=== PATIENT | female | born 1945 | race Two or more races ===

== ENCOUNTER 2018-05-10 10:17 | Inpatient (IN) | payer MEDICARE, MEDICAID ==
[~2018-05-10] VITALS: Ht 157.5 cm; Wt 75.8 kg
[2018-05-10] MEDS ORDERED: IV NS 0.9% 1,000 ML BAG IV ONE (10:30)
--- NOTE | 2018-05-10 10:37 | NUR ---
patient presented to the ER dilan, c/o rapid heart rate x 2 weeks. On room air, denies any pain at this time. connected to the monitor, and pulse ox. kept comfortable. will continue to monitor accordingly.
[2018-05-10 10:44] LABS: BASOPHILS # (AUTO) 0.1 /CMM (0.0-0.2); BASOPHILS % (AUTO) 0.9 % (0.0-2.0); HEMATOCRIT 43 % (33-45); HEMOGLOBIN 14.3 g/dL (11.5-14.8); LYMPHOCYTES # (AUTO) 1.7 /CMM (0.8-4.8); LYMPHOCYTES % (AUTO) 27.5 % (20.0-44.0); MEAN CORPUSCULAR HGB CONC 34 g/dl (31.0-36.0); MEAN CORPUSCULAR VOLUME 88 fL (82-100); MONOCYTES # (AUTO) 0.5 /CMM (0.1-1.30); MONOCYTES % (AUTO) 8.2 % (2.0-12.0); NEUTROPHILS # (AUTO) 3.9 /CMM (1.8-8.9); NEUTROPHILS % (AUTO) 62.4 % (43.0-81.0); PLATELET COUNT (AUTO) 224 /CMM (150-450); RED BLOOD CELL COUNT(AUTO) 4.83 MIL/uL (4.0-5.2); WHITE BLOOD COUNT (AUTO) 6.3 K/uL (4.3-11.0)
[2018-05-10 10:50] LABS: CALCIUM, SERUM 9.2 mg/dL (8.5-10.1); CARBON DIOXIDE 29 mmol/L (21-32); CHLORIDE 100 mmol/L (98-107); CREATININE 0.9 mg/dL (0.6-1.3); GLUCOSE 80 mg/dL (74-106); SODIUM SERUM 137 mmol/L (136-145); UREA NITROGEN, BLOOD 17 mg/dL (7-18)
[2018-05-10 10:56] LABS: ALANINE AMINOTRANSFERASE 22 U/L (12-78); ALBUMIN 3.5 g/dL (3.4-5.0); ALKALINE PHOSPHATASE 87 U/L (46-116); ASPARTATE AMINOTRANSFERASE 16 U/L (15-37); BILIRUBIN,DIRECT 0.1 mg/dL (0.0-0.2); BILIRUBIN,TOTAL 0.3 mg/dL (0.2-1.0); LIPASE 115 U/L (73-393); TOTAL PROTEIN, SERUM 7.1 g/dL (6.4-8.2)
--- NOTE | 2018-05-10 11:15 | NUR ---
CALLED NURSING SUP. FOR TELE BED
[2018-05-10 11:16] LABS: APPEARANCE,URINE Clear (CLEAR); BILIRUBIN,URINE Negative (NEGATIVE); BLOOD, URINE Negative Ery/uL (NEGATIVE); COLOR,URINE Yellow (YELLOW); KETONES,URINE Negative (NEGATIVE); LEUKOCYTE ESTERASE ,URINE Negative (NEGATIVE); NITRITE, URINE Negative (NEGATIVE); PROTEIN,URINE Negative (NEGATIVE); UGLUCOSE Negative (NEGATIVE); UROBILINOGEN,URINE 0.2 EU/dL (0.2)
[2018-05-10] MEDS ORDERED: ASPIRIN 325 MG TABLET PO ONE (11:30)
[2018-05-10] MEDS ORDERED: ASPIRIN 81 MG TAB.CHEW ONE (11:30)
--- NOTE | 2018-05-10 11:36 | NUR ---
urine collected and sent to lab.
--- NOTE | 2018-05-10 11:59 | NUR ---
KJ PAGED, METAL EXTRUSION SUPERVISOR
--- NOTE | 2018-05-10 12:00 | NUR ---
TELE [id number]-
[2018-05-10] MEDS ORDERED: OMEP20TA5 PO (12:14)
[2018-05-10] MEDS ORDERED: CLON0.5T12 PO (12:14)
[2018-05-10] MEDS ORDERED: OLME20TA13 PO (12:14)
--- NOTE | 2018-05-10 12:58 | NUR ---
report given to neli SRINIVASAN for eric.
[2018-05-10] MEDS ORDERED: MAG HYDROX/AL HYDROX/SIMETH 30 ML UDC PO PRN (13:00)
[2018-05-10] MEDS ORDERED: MAGNESIUM HYDROXIDE 30 ML UDC PO PRN (13:00)
[2018-05-10] MEDS ORDERED: HYDROCODONE/APAP 5/325MG 1 EACH TABLET PO PRN (13:00)
[2018-05-10] MEDS ORDERED: ZOLPIDEM TARTRATE 5 MG TABLET PO PRN (13:00)
[2018-05-10] MEDS ORDERED: Z GUARD REMEDY 2 OZ OINT TP PRN (13:00)
[2018-05-10] MEDS ORDERED: ONDANSETRON HCL/PF 4 MG/2 ML VIAL IVP PRN (13:00)
--- NOTE | 2018-05-10 13:10 | NUR ---
transferred patient via acls protocol in no apparent distress noted. Trudy at bedside and received the patient.
--- NOTE | 2018-05-10 13:30 | NUR ---
MS RN RECEIVED A 72 YEAR OLD FEMALE FROM ER, AWAKE,ALERT,ORIENTED X4 NOT IN ANY FORM OF DISTRESS, CAME IN W/ PALPITATIONS , DENIES PAIN AT THIS TIME, WILL MONITOR PATIENT.
[2018-05-10 14:00] VITALS: BP 125/70
[2018-05-10 16:00] VITALS: BP 108/65
--- NOTE | 2018-05-10 16:30 | NUR ---
MS RN WAS SEEN BY DR. MAIKEL Foreman/ ORDERS MADE AND CARRIED OUT.
[2018-05-10] MEDS: LOSARTAN POTASSIUM 50 MG TABLET PO SCH (18:30)
--- NOTE | 2018-05-10 18:45 | NUR ---
MS RN WAS SEEN BY DR. HER, AWAITING FOR ORDERS.
[2018-05-10 20:00] VITALS: BP 112/64
[2018-05-10 20:20] VITALS: BP 103/64
[2018-05-10 20:41] LABS: MAGNESIUM 1.8 mg/dL (1.8-2.4)
[2018-05-10] MEDS: ACETAMINOPHEN 325 MG TABLET PO PRN (21:12)
[2018-05-10 21:30] LABS: THYROID STIMULATING HORMONE 1.403 uIU/mL (0.358-3.74)
[2018-05-10 23:39] VITALS: BP 104/68
[2018-05-11 04:28] VITALS: BP 114/70
--- NOTE | 2018-05-11 06:12 | NUR ---
OILFIELD PLANT AND FIELD OPERATOR NOTES AWAKE & RESPONSIVE. NOT IN ANY DISTRESS. NO SOB NOTED. DENIES ANY PAIN OR DISCOMFORT AT THIS TIME. ON TELE SR @ 90 WITH IV-HL PATENT & INTACT. MONITORED ACCORDINGLY. CALL LIGHT WITHIN REACH. BED IN LOWEST POSITION. SR UP X 2 FOR SAFETY. WILL ENDORSE TO NEXT SHIFT.
[2018-05-11 06:43] LABS: ALANINE AMINOTRANSFERASE 22 U/L (12-78); ALBUMIN 3.1 g/dL (3.4-5.0); ALKALINE PHOSPHATASE 71 U/L (46-116); ASPARTATE AMINOTRANSFERASE 14 U/L (15-37); BILIRUBIN,TOTAL 0.4 mg/dL (0.2-1.0); CARBON DIOXIDE 25 mmol/L (21-32); CHLORIDE 103 mmol/L (98-107); CREATININE 0.8 mg/dL (0.6-1.3); GLUCOSE 90 mg/dL (74-106); MAGNESIUM 1.9 mg/dL (1.8-2.4); PHOSPHORUS 3.7 mg/dL (2.5-4.9); POTASSIUM 3.9 mmol/L (3.5-5.1); SODIUM SERUM 136 mmol/L (136-145); TOTAL PROTEIN, SERUM 6.3 g/dL (6.4-8.2); UREA NITROGEN, BLOOD 15 mg/dL (7-18)
[2018-05-11 06:46] LABS: BASOPHILS % (AUTO) 0.6 % (0.0-2.0); CHOLESTEROL 199 mg/dL (<200); EOSINOPHILS % (AUTO) 1.3 % (0.0-6.0); HDL CHOLESTEROL 53 mg/dL (40-60); HEMATOCRIT 42 % (33-45); HEMOGLOBIN 14.1 g/dL (11.5-14.8); LDL 137 mg/dL (0-99); LYMPHOCYTES # (AUTO) 2.6 /CMM (0.8-4.8); LYMPHOCYTES % (AUTO) 38.5 % (20.0-44.0); MEAN CORPUSCULAR HGB CONC 34 g/dl (31.0-36.0); MEAN CORPUSCULAR VOLUME 87 fL (82-100); MONOCYTES # (AUTO) 0.4 /CMM (0.1-1.30); MONOCYTES % (AUTO) 6.5 % (2.0-12.0); NEUTROPHILS # (AUTO) 3.5 /CMM (1.8-8.9); NEUTROPHILS % (AUTO) 53.1 % (43.0-81.0); PLATELET COUNT (AUTO) 209 /CMM (150-450); RED BLOOD CELL COUNT(AUTO) 4.84 MIL/uL (4.0-5.2); TRIGLYCERIDES 69 mg/dL (30-150); WHITE BLOOD COUNT (AUTO) 6.7 K/uL (4.3-11.0)
--- NOTE | 2018-05-11 07:06 | NUR ---
CREW PERSON NOTES PATIENT IN BED ALERT ORIENTED X 4. NO ACUTE DISTRESS NOTED, BREATHING UNLABORED. NO SOB NOTED. IV ACCESS PATENT AND INTACT. HOB ELEVATED. SAFETY MEASURES IN PLACE. CALL LIGHT WITHIN REACH. WILL CONTINUE TO MONITOR ACCORDINGLY.
[2018-05-11 08:00] VITALS: BP 111/76
[2018-05-11] MEDS: clonazePAM 0.5 MG TABLET PO SCH ×2 (09:10→09:22)
[2018-05-11] MEDS: LOSARTAN POTASSIUM 50 MG TABLET PO SCH ×2 (09:10→09:23)
[2018-05-11] MEDS: ACETAMINOPHEN 325 MG TABLET PO PRN ×3 (09:10→15:41)
--- NOTE | 2018-05-11 09:18 | NUR ---
WOOD TANK BUILDER NOTES ACCIDENTALLY DROPPED MEDICATION CLONAZEPAM, LOSARTAN AND TYLENOL ON THE FLOOR, WASTED MEDICATION WITNESSED BY CRAIG DAHL AND CRAIG OLVERA. REPLACED MEDICATION TAKEN FROM OMNICEL. PHARMACIST NOTIFIED.
[2018-05-11 12:00] VITALS: BP 95/63
[2018-05-11 16:00] VITALS: BP 104/69
--- NOTE | 2018-05-11 19:00 | NUR ---
MS RN NOTES PATIENT IN BED ALERT ORIENTED X 4. NO ACUTE DISTRESS NOTED, BREATHING UNLABORED. NO SOB NOTED. IV ACCESS PATENT AND INTACT. HOB ELEVATED.DUE MEDICATIONS GIVEN, NO ASE NOTED. NEEDS ATTENDED AND ANTICIPATED. KEPT CLEAN DRY AND COMFORTABLE. SAFETY MEASURES IN PLACE. CALL LIGHT WITHIN REACH. ENDORSED TO NIGHT NURSE FOR CONTINUITY OF CARE.
[2018-05-11 20:00] VITALS: BP 97/73
--- NOTE | 2018-05-11 22:00 | NUR ---
PHOTOSTATIC COPY MAKER NOTES RECEIVED REPORT FROM [place],PATIENT ON BED SLEEPING,BREATHING REGULAR,NOT IN ANY FORM OF DISTRESS.WILL CONTINUE TO MONITOR STATUS.
[2018-05-12] VITALS: BP 107/63
[2018-05-12 00:20] VITALS: BP 107/63
[2018-05-12 04:00] VITALS: BP 112/70
--- NOTE | 2018-05-12 05:59 | NUR ---
EXCHANGE ENGINEER NOTES AWAKE ON BED,DENIES CHEST PAIN,HEART RATE WITH IN NORMAL LIMITS
--- NOTE | 2018-05-12 06:31 | NUR ---
MS RN NOTES FAIRLY RESTED,DENIES PALPITATIONS.POSSIBLE D/C TODAY,ABLATION OUTPATIENT PER DR BRUNO.WILL ENDORSE TO DAY NURSE FOR HUY.
--- NOTE | 2018-05-12 07:03 | NUR ---
RECORD SYSTEMS ANALYST NOTES PATIENT IN BED ALERT ORIENTED X 4. NO ACUTE DISTRESS NOTED, BREATHING UNLABORED. NO SOB NOTED. IV ACCESS PATENT AND INTACT. HOB ELEVATED. SAFETY MEASURES IN PLACE. CALL LIGHT WITHIN REACH. WILL CONTINUE TO MONITOR ACCORDINGLY.
[2018-05-12 07:54] LABS: BASOPHILS % (AUTO) 0.4 % (0.0-2.0); EOSINOPHILS % (AUTO) 1.4 % (0.0-6.0); HEMATOCRIT 41 % (33-45); HEMOGLOBIN 13.5 g/dL (11.5-14.8); LYMPHOCYTES # (AUTO) 2.1 /CMM (0.8-4.8); LYMPHOCYTES % (AUTO) 36.8 % (20.0-44.0); MEAN CORPUSCULAR HGB CONC 33 g/dl (31.0-36.0); MEAN CORPUSCULAR VOLUME 87 fL (82-100); MONOCYTES # (AUTO) 0.4 /CMM (0.1-1.30); MONOCYTES % (AUTO) 6.3 % (2.0-12.0); NEUTROPHILS # (AUTO) 3.1 /CMM (1.8-8.9); NEUTROPHILS % (AUTO) 55.1 % (43.0-81.0); PLATELET COUNT (AUTO) 199 /CMM (150-450); RED BLOOD CELL COUNT(AUTO) 4.64 MIL/uL (4.0-5.2); WHITE BLOOD COUNT (AUTO) 5.6 K/uL (4.3-11.0)
[2018-05-12 08:00] VITALS: BP 111/70
[2018-05-12 08:23] LABS: CALCIUM, SERUM 9.1 mg/dL (8.5-10.1); CREATININE 0.8 mg/dL (0.6-1.3); POTASSIUM 4.6 mmol/L (3.5-5.1)
[2018-05-12] MEDS: LOSARTAN POTASSIUM 50 MG TABLET PO SCH (08:49)
[2018-05-12] MEDS: clonazePAM 0.5 MG TABLET PO SCH (08:50)
--- NOTE | 2018-05-12 09:55 | NUR ---
MS RN NOTES SEEN AND EVALUATED BY DR NOVA WITH NEW ORDERS MADE NOTED AND CARRIED OUT.
--- NOTE | 2018-05-12 13:37 | NUR ---
MS RN NOTES RN CATRACHITA BUSY WITH ANOTHER PATIENT I ASSISTED WITH DISCHARGE. PROVIDED INSTRUCTIONS TO PATIENT ADDITIONAL FROM CLEMENT[facility] INSTRUCTIONS. ALL BELONGINGS ACCOUNTED FOR , BELONGING LIST SIGNED. DISCHARGE PAPERS SIGNED. PATIENT VERBALIZED UNDERSTANDING TO FOLLOW UP WITH DR. MITCHELL CARDIOLOGY. PERIPHERAL IV REMOVED WITH MINIMALL BLEEDING. ID BAND REMOVED. PATIENT ESCORTED TO CAR BY MEHNAZ PRIMARY NURSE.
== END 2018-05-12 15:00 | disposition home or self-care (01) | DRG 310 ==
LOC: ER 10:19 → TELE 12:20 → MED 05-12 08:41
PROVIDERS: ADMIT Family Medicine; ATTEND Family Medicine
DX: I44.1 Atrioventricular block, second degree (principal); I47.1 Supraventricular tachycardia; E66.9 Obesity, unspecified; I10 Essential (primary) hypertension; Z68.30 Body mass index [BMI] 30.0-30.9, adult; F17.210 Nicotine dependence, cigarettes, uncomplicated; Z83.3 Family history of diabetes mellitus
CPT/HCPCS: 36415; 71045-TC; 80048-TC; 80053-TC; 80061-TC; 80076-TC; 81000-TC; 83690-TC; 83735-TC; 84100-TC; 84439-TC; 84443-TC; 84484-TC; 85025-TC; 87081-TC; 93307-TC; G0378; J7030